=== PATIENT | male | born 1990 | race Caucasian/White ===

== ENCOUNTER 2018-04-21 05:06 | Emergency (ER) | payer MEDICAID ==
[~2018-04-21] VITALS: Ht 172.7 cm; Wt 61.2 kg
[~2018-04-21 05:06] MED LIST: PHEN100C PO
[2018-04-21] MEDS ORDERED: HYDROcodone/APAP 5/325 TABLET PO ONE (05:30)
[2018-04-21] MEDS ORDERED: HYDROcodone/APAP 5/325 TABLET ONE (05:41)
[2018-04-21 06:21] VITALS: BP 131/78
== END 2018-04-21 06:23 | disposition home or self-care (01) ==
LOC: ED 06:10
DX: K04.7 Periapical abscess without sinus (principal); F17.210 Nicotine dependence, cigarettes, uncomplicated; G40.909 Epilepsy, unspecified, not intractable, without status epilepticus
CPT/HCPCS: 41800; 99283

== ENCOUNTER 2019-04-13 16:54 | Emergency (ER) | payer MEDICAID, OTHER ==
[~2019-04-13] VITALS: Ht 172.7 cm; Wt 66.0 kg
[2019-04-13 17:00] VITALS: BP 97/35
[2019-04-13] MEDS ORDERED: LEVE500T53 PO (17:06)
--- NOTE | 2019-04-13 17:13 | NUR ---
TASK RN: THIS IS A 28 YO MALE WHO PRESENTS TO THE ER C/O SUDDEN ONSET OF CP RADIATING DOWN LEFT ARM AND LEFT AT APPROX 1600 WHILE EATING AND DESCRIBED "SHARP" AND WOSRE WITH DEEP BREATHS. PT RECEIVED 324 MG ASA AND NITRO X 3 BY EMS AND NITRO X 1 BY RN AT [facility]. PT AO X 4. SKIN PWD. RESP EVEN AND UNLABORED. PT ON CONT BP, CARDIAC AND O2 MONITORS. BHARTI HOLLINGSWORTH HAS BEEN TO BEDSIDE FOR EVAL. REPORT TO PRIMARY RN SCHUYLER.
[2019-04-13] MEDS ORDERED: MAALOX/HYOSCYAMINE/LIDOCAINE 45 ML BTL ONE (17:20)
[2019-04-13] MEDS ORDERED: KETOROLAC 30 MG/1 ML ONE (17:20)
[2019-04-13 17:25] LABS: BASOPHILS # (AUTO) 0.05 x10^3/uL (0-0.1); BASOPHILS % (AUTO) 1 % (0-1); EOSINOPHILS # (AUTO) 0.38 x10^3/uL (0-0.4); EOSINOPHILS % (AUTO) 5 % (1-7); LYMPHOCYTES # (AUTO) 2.05 x10^3/uL (1-3.4); LYMPHOCYTES % (AUTO) 27 % (22-44); MD NO; MEAN CORPUSCULAR HEMOGLOBIN 32.8 pg (27.5-34.5); MEAN CORPUSCULAR VOLUME 99.2 fL (81-97); MEAN PLATELET VOLUME 7.4 fL (7.4-10.4); MONOCYTES # (AUTO) 0.56 x10^3/uL (0.2-0.8); MONOCYTES % (AUTO) 7 % (2-9); NEUTROPHILS # (AUTO) 4.59 x10^3/uL (1.8-6.8); NEUTROPHILS % (AUTO) 60 % (42-75); PLATELET COUNT 202 x10^3/uL (130-400); RED BLOOD COUNT 3.93 x10^6/uL (4.38-5.82); RED CELL DISTRIBUTION WIDTH 13.9 % (9.4-14.8)
[2019-04-13] MEDS ORDERED: KETOROLAC 30 MG/1 ML IVPush ONE (17:30)
[2019-04-13] MEDS ORDERED: MAALOX/HYOSCYAMINE/LIDOCAINE 45 ML BTL PO ONE (17:30)
[2019-04-13 17:37] LABS: ALANINE AMINOTRANSFERASE 19 U/L (12-78); ALBUMIN 3.2 g/dL (3.4-5.0); ANION GAP 2 mmol/L (5-15); CALCIUM 7.9 mg/dL (8.5-10.1); CHLORIDE 111 mmol/L (98-107)
[2019-04-13 17:43] LABS: ALKALINE PHOSPHATASE 74 U/L (45-117); BILIRUBIN,TOTAL 0.2 mg/dL (0.2-1.0); CREATININE 0.91 mg/dL (0.7-1.3); TROPONIN I < 0.015 ng/mL (0.000-0.045)
--- NOTE | 2019-04-13 18:07 | NUR ---
pATIENT REPORTS HE IS FEELING BETTER PAIN IS 3/10
--- NOTE | 2019-04-13 18:12 | NUR ---
pATIENT DISCHARGED BACK IN CUSTODY. VSS, NAD NOTED AT DISCHARGE. DISCHARGE INSTRUCTIONS PROVIDED ALL QUESTIONS AND CONCERNS ADDRESSED AT THIS TIME. AMBULATORY WITH STEADY GAIT.
== END 2019-04-13 18:31 | disposition home or self-care (01) ==
LOC: ED 18:15
DX: K21.9 Gastro-esophageal reflux disease without esophagitis (principal); R07.2 Precordial pain; G40.909 Epilepsy, unspecified, not intractable, without status epilepticus; F17.200 Nicotine dependence, unspecified, uncomplicated; Z85.038 Personal history of other malignant neoplasm of large intestine
CPT/HCPCS: 36415; 71045; 80053; 83690; 84484; 85025; 93005; 96374; 99284; J1885